=== PATIENT | male | born 1980 | race Caucasian/White ===

== ENCOUNTER 2022-04-09 00:34 | Emergency (ER) | payer OTHER ==
[2022-04-09] MEDS ORDERED: Cephalexin 500 MG Cap ONE (01:00)
[2022-04-09] MEDS: Diphtheria,Pertussis(Acell),Tetanus Vaccine 0.5 ML SDV IM ONE (01:15)
[2022-04-09] MEDS ORDERED: Lidocaine 1% 5 ML VIAL INJECT ONE (01:22)
== END 2022-04-09 01:35 | disposition home or self-care (01) ==
LOC: LB.ED 00:34
DX: S61.210A Laceration without foreign body of right index finger without damage to nail, initial encounter (principal); Z23 Encounter for immunization; W26.8XXA Contact with other sharp object(s), not elsewhere classified, initial encounter
CPT/HCPCS: 12002; 90471; 90715; 99282; 99282-25; A9270-GY